=== PATIENT | female | born 1955 | race Caucasian/White ===

== ENCOUNTER 2020-04-02 11:22 | Outpatient (NON) | payer MEDICARE, SELFPAY ==
[2020-04-03 06:46] LABS: SARS-CoV-2 RNA PCR Positive
== END 2020-04-02 11:23 ==
PROVIDERS: PCP Family Medicine; Visit Provider Family Medicine
DX: U07.1 COVID-19 (principal)
CPT/HCPCS: 87635; C9803; U0003

== ENCOUNTER 2021-01-15 07:29 | Outpatient (CLI) | payer MEDICARE, SELFPAY ==
--- NOTE | ~2021-01-15 | MM_ITS ---
EXAMINATION: MM screening scarlet BI w kirill HISTORY: Screening mammogram TECHNIQUE: Craniocaudal and mediolateral oblique 3-D tomosynthesis images were obtained and synthetic 2-D images were generated. CAD analysis was submitted and interpreted. COMPARISON: 05/20/2019, 04/19/2018 bilateral digital screening mammogram examinations BREAST PARENCHYMAL COMPOSITION: There are scattered areas of fibroglandular density. FINDINGS: There is no evidence of suspicious mass, calcification, or architectural distortion to sugg est malignancy in either breast. There has been no suspicious interval change. IMPRESSION: 1. No mammographic evidence of malignancy. 2. Recommend routine screening mammography in one year. BI-RADS Category 1: Negative Reviewed, dictated and finalized at location A.
== END 2021-01-15 07:30 | disposition home or self-care (01) ==
LOC: ANHIMG 07:31
PROVIDERS: PCP Family Medicine; Visit Provider Physician Assistant
DX: Z12.31 Encounter for screening mammogram for malignant neoplasm of breast (principal)
CPT/HCPCS: 77063; 77067

== ENCOUNTER 2021-03-08 01:07 | Day surgery (SDC) | payer MEDICARE, SELFPAY ==
[2021-02-18 14:29] VITALS: BMI 23.1
[2021-03-08 07:30] VITALS: BP 113/77; PULSE 92; RESP 16; TEMP 35.6; O2SAT 99
--- NOTE | 2021-03-08 07:32 | WPDANESEPPF ---
Anes - Initial Pre Proc Eval Procedure: Operation Date: 03/08/21 08:30 Proposed Procedures p Screening Colonoscopy - Mando Parr MD Date/Time: 03/08/21 07:32 Surgeon: Mando Parr MD Pre Op Diagnosis: neoplasm screening Patient Data Age: 65 Gender: F Height: 1.63 m Weight: 61.3 kg Allergies Allergy/AdvReac Type Severity Reaction Status Date / Time No Known Allergies Verified 03/08/21 07:28 Home Medications Medication Instructions Recorded Confirmed Type calcium carbonate-vitamin D3 600 1 tablet PO DAILY 04/21/19 03/08/21 History mg (1,500 mg)-800 unit tablet multivitamin 1 tablet PO DAILY 04/21/19 03/08/21 History Patient hx anesthesia problems: none Family hx anesthesia problems: none Results Review: All pre-operative results and documents have been reviewed as part of the pre-operative evaluation. [facility] Surgical History Surgical History History of elective section Family History Family History Mother Family history of primary malignant neoplasm of liver Other Asthma Diabetes mellitus Family history of Hodgkin's lymphoma Family history of cardiovascular disease Family history of malignant neoplasm Social History Social History Smoking status: Never smoker Second hand tobacco smoke exposure: No Alcohol intake: never Substance use: never Substance use type: does not use Living arrangements: with family Gender identity (if verbalized by the patient): Female Anes - Eval Final PreProcedure Day of Procedure 03/08/21 07:32 Patient weight: normal Heart: regular rate and rhythm Lungs: clear to auscultation and normal air movement Airway: Mallampati scale class II Neurological: alert and oriented Last oral intake: >/= 8 hours ASA classification: I Emergent: no Anesthetic plan: proceed Anesthesia type and monitoring: general GIVS Results Review: All pre-operative results and documents have been reviewed as part of the pre-operative evaluation. Informed Consent: The patient's anesthetic plan and its attendant risks and benefits were discussed with the patient/family/POA. Questions were solicited and answers provided to the satisfaction of the patient/family/POA.
--- NOTE | 2021-03-08 07:33 | P.CONGI_ITS ---
Assessment and Plan Assessment and plan (1) Encounter for screening colonoscopy: Code(s): Z12.11 - Encounter for screening for malignant neoplasm of colon Status: Acute Assessment and Plan: Patient presents for screening colonoscopy. Appears to be at average risk for colon polyps. GI Consult Note Consult date/time: 03/08/21 07:33 HPI: Leeanne White is a 65 year old female Presents for screening colonoscopy. She reports her current weight appetite bowel movements are normal . She denies abdominal pain. She has had no bleeding. Family history noncontributory. Has been 10 years or more since her last colonoscopy. She presents today for surveillance screening colonoscopy. Review of Systems Review of Systems: All systems reviewed & are unremarkable except as noted in HPI and below PMFSH Surgical History Surgical History History of elective section Family History Family History Mother Family history of primary malignant neoplasm of liver Other Asthma Diabetes mellitus Family history of Hodgkin's lymphoma Family history of cardiovascular disease Family history of malignant neoplasm Social History Social History Smoking status: Never smoker Second hand tobacco smoke exposure: No Alcohol intake: never Substance use: never Substance use type: does not use Living arrangements: with family Gender identity (if verbalized by the patient): Female Meds Home Medications and Allergies Home Medications Medication Instructions Recorded Confirmed Type calcium carbonate-vitamin D3 600 1 tablet PO DAILY 04/21/19 03/08/21 History mg (1,500 mg)-800 unit tablet multivitamin 1 tablet PO DAILY 04/21/19 03/08/21 History Allergies Allergy/AdvReac Type Severity Reaction Status Date / Time No Known Allergies Verified 03/08/21 07:28 Exam Narrative: Physical exam reveals patient be alert. Vital signs stable. HEENT exam is unremarkable. Patient is anicteric. Lungs are clear to auscultat ion and percussion. Heart is without murmur or extra sounds. Abdominal exam bowel sounds are present soft nontender with no organomegaly. Digital external rectal exam is normal.
[2021-03-08] MEDS: LACTATED RINGERS 1,000 ML 150 ML IV CONT (07:38)
[2021-03-08 08:46] VITALS: BP 93/59; PULSE 76; RESP 13; O2SAT 97
[2021-03-08 08:56] VITALS: BP 116/70; PULSE 81; RESP 15; O2SAT 99
[2021-03-08 09:06] VITALS: BP 111/65; PULSE 79; RESP 22; O2SAT 100
== END 2021-03-08 09:18 | disposition home or self-care (01) ==
PROVIDERS: PCP Family Medicine; Visit Provider Internal Medicine Gastroenterology
PROC: 0DJD8ZZ Inspection of Lower Intestinal Tract, Via Natural or Artificial Opening Endoscopic (ICD-10-PCS; CPT 45378; principal; 2021-03-08 08:30)
DX: Z12.11 Encounter for screening for malignant neoplasm of colon (principal); D12.5 Benign neoplasm of sigmoid colon; K64.8 Other hemorrhoids
CPT/HCPCS: 45385; 88305; J2704; J7120

== ENCOUNTER 2022-06-13 08:00 | Outpatient (NON) | payer MEDICARE, SELFPAY | END 2022-06-13 08:01 | disposition home or self-care (01) | LOC: ANHLAB 06-14 12:25 | PROVIDERS: PCP Family Medicine; Visit Provider Nurse Practitioner | DX: C44.41 Basal cell carcinoma of skin of scalp and neck (principal) | CPT/HCPCS: 88305 ==

== ENCOUNTER 2022-06-20 09:05 | Outpatient (CLI) | payer MEDICARE, SELFPAY ==
--- NOTE | ~2022-06-20 | MM_ITS ---
EXAMINATION: MM screening scarlet BI w kirill HISTORY: Screening mammogram TECHNIQUE: Craniocaudal and mediolateral oblique 3-D tomosynthesis images were obtained and synthetic 2-D images were generated. CAD analysis was submitted and interpreted. COMPARISON: 01/2021, 05/20/2019, 04/19/2018 bilateral screening mammogram examinations BREAST PARENCHYMAL COMPOSITION: There are scattered areas of fibroglandular density. FINDINGS: There is no evidence of suspicious mass, calcification, or architectural distortion to sugg est malignancy in either breast. There has been no suspicious interval change. IMPRESSION: 1. No mammographic evidence of malignancy. 2. Recommend routine screening mammography in one year. BI-RADS Category 1: Negative Reviewed, dictated and finalized at location A. STRY FIRE AIDE
--- NOTE | ~2022-06-20 | DEXA_ITS ---
Bone Density Report Name: ARMANDO SIMMONS Age: 66 Sex: Female Ethnicity: White Date of : 1955 Indication: osteopenia; parental hip fracture; postmenopausal Referring Provider: BRANDON PADILLA Study: Bone densitometry was performed. Exam Date: June 20, 2022 Accession number: [id number] Bone Density: Region BMD T-score Z-score Classification AP Spine(L1-L4) 0.937 -1.0 1.0 Normal Femoral Neck (Left) 0.650 -1.8 -0.1 Osteopenia Total Hip (Left) 0.777 -1.4 0.1 Osteopenia Femoral Neck (Right) 0.643 -1.9 -0.1 Osteopenia Total Hip (Right) 0.747 -1.6 -0.2 Osteopenia Total Hip Mean 0.762 -1.5 -0.1 Osteopenia World Health Organization criteria for BMD impression classify patients as: Normal (T-score at or above -1.0), Osteopenia (T-score between -1.0 and -2.5), or Osteoporosis (T-score at or below -2.5). 10-year Fracture Risk(1): Major Osteoporotic Fracture 18% Hip Fracture 3.1% Reported Risk Factors: [place] (), Neck BMD=0.643, BMI=24.4, parental fracture (1) FRAX(R) Version 3.08. Fracture probability calculated for an untreated patient. Fracture probability may be lower if the patient has received treatment. Previous Exams: Region Exam Age BMD T-score BMD Change BMD Change Date g/cm2 vs Baseline vs Previous AP Spine (L1-L4) 06/20/2022 66 0.937 -1.0 0.012 (1.3%) 0.012 (1.3%) 05/20/2019 63 0.925 -1.1 Total Hip(Left) 06/20/2022 66 0.777 -1.4 -0.016 (-2.1%) -0.016 (-2.1%) 05/20/2019 63 0.794 -1.2 Total Hip(Right) 06/20/2022 66 0.747 -1.6 -0.018 (-2.3%) -0.018 (-2.3%) 05/20/2019 63 0.765 -1.5 *Denotes significance at 95% confidence level, LSC for AP Spine = 0.022 g/cm2, LSC for Total Hip = 0.027 g/cm2 Clinical Information Provided by Patient: Parent has had a hip fracture Has used the following medications: Calcium Patient maximum height was 64 Menopause Age: 53 Drinks caffeinated beverages Onset of menses at age 12 Number of children 3 Impression: The patient has low bone mass, based on the Right Femoral Neck T-score. The patient has an estimated ten-year risk of hip fracture of 3.1% and an estimated ten-year risk of major fracture of 18%, based on the WHO FRAX algorithm. The patient has risk factors, including: parental hip fracture. No significant bone loss was observed. Discussion: BONE DENSITY IS LOW AT ONE OR MORE SKELETAL SITES. THE PATIENT'S BMD AND CLINICAL RISK FACTORS CO
== END 2022-06-20 09:06 | disposition home or self-care (01) ==
PROVIDERS: PCP Family Medicine; Visit Provider Family Medicine
DX: Z12.31 Encounter for screening mammogram for malignant neoplasm of breast (principal); Z78.0 Asymptomatic menopausal state; M85.89 Other specified disorders of bone density and structure, multiple sites
CPT/HCPCS: 77063; 77067; 77080

== ENCOUNTER 2022-07-17 12:13 | Outpatient (NON) | payer MEDICARE, SELFPAY | END 2022-07-17 12:14 | disposition home or self-care (01) | LOC: ANHLAB 12:14 | PROVIDERS: PCP Family Medicine; Visit Provider Nurse Practitioner | DX: C44.91 Basal cell carcinoma of skin, unspecified (principal); C44.41 Basal cell carcinoma of skin of scalp and neck | CPT/HCPCS: 88305; 88331 ==

== ENCOUNTER 2024-08-06 14:31 | Outpatient (CLI) | payer MEDICARE, SELFPAY ==
--- NOTE | ~2024-08-06 | MM_ITS ---
EXAMINATION: MM screening [facility] BI w kirill HISTORY: Screening TECHNIQUE: Craniocaudal and mediolateral oblique 3-D tomosynthesis images were obtained and synthetic 2-D images were generated. CAD analysis was submitted and interpreted. COMPARISON: 06/20/2022 and dating back to 04/19/2018 BREAST PARENCHYMAL COMPOSITION: There are scattered areas of fibroglandular density. FINDINGS: Punctate calcifications are detected bilaterally, stable and benign in appearance. Indeterminate asymmetry within the upper outer quadrant of the right breast for which spot compressio n followed by a possible ultrasound is recommended. Otherwise stable parenchymal pattern without suspicious microcalcifications or architectural distorti on. IMPRESSION: Indeterminate asymmetry within the upper outer quadrant of the right breast for which spot compressio n followed by a possible ultrasound is recommended. BI-RADS Category 0: Incomplete: Needs additional imaging evaluation. Reviewed, dictated and finalized at location A. IMPRESSION: Indeterminate asymmetry within the upper outer quadrant of the right breast for which spot compression followed by a possible ultrasound is recommended. BI-RADS Category 0: Incomplete: Needs additional imaging evaluation.
== END 2024-08-06 14:32 | disposition home or self-care (01) ==
LOC: ANHIMG 14:33
PROVIDERS: PCP Family Medicine; Visit Provider Family Medicine
DX: Z12.31 Encounter for screening mammogram for malignant neoplasm of breast (principal); R92.8 Other abnormal and inconclusive findings on diagnostic imaging of breast
CPT/HCPCS: 77063; 77067

== ENCOUNTER 2024-08-20 08:25 | Outpatient (CLI) | payer MEDICARE, SELFPAY ==
--- NOTE | ~2024-08-20 | DEXA_ITS ---
Bone Density Report Name: ARMANDO SIMMONS Age: 68 Sex: Female Ethnicity: White Date of : 1955 Indication: osteopenia; parental hip fracture; height loss; Referring Provider: BRANDON PADILLA Study: Bone densitometry was performed. Exam Date: August 20, 2024 Accession number: [id number] Bone Density: Region BMD T-score Z-score Classification AP Spine(L1-L4) 0.938 -1.0 1.2 Normal Femoral Neck (Left) 0.651 -1.8 0.1 Osteopenia Total Hip (Left) 0.768 -1.4 0.1 Osteopenia Femoral Neck (Right) 0.622 -2.0 -0.2 Osteopenia Total Hip (Right) 0.779 -1.3 0.2 Osteopenia Total Hip Mean 0.773 -1.4 0.2 Osteopenia World Health Organization criteria for BMD impression classify patients as: Normal (T-score at or above -1.0), Osteopenia (T-score between -1.0 and -2.5), or Osteoporosis (T-score at or below -2.5). 10-year Fracture Risk(1): Major Osteoporotic Fracture 20% Hip Fracture 6.1% Reported Risk Factors: [place] (), Neck BMD=0.622, BMI=24.9, parental fracture (1) FRAX(R) Version 3.08. Fracture probability calculated for an untreated patient. Fracture probability may be lower if the patient has received treatment. Previous Exams: Region Exam Age BMD T-score BMD Change BMD Change Date g/cm2 vs Baseline vs Previous AP Spine (L1-L4) 08/20/2024 68 0.938 -1.0 0.013 (1.4%) 0.002 (0.2%) 06/20/2022 66 0.937 -1.0 0.012 (1.3%) 0.012 (1.3%) 05/20/2019 63 0.925 -1.1 Total Hip(Left) 08/20/2024 68 0.768 -1.4 -0.026 (-3.2%) -0.009 (-1.2%) 06/20/2022 66 0.777 -1.4 -0.016 (-2.1%) -0.016 (-2.1%) 05/20/2019 63 0.794 -1.2 Total Hip(Right) 08/20/2024 68 0.779 -1.3 0.014 (1.8%) 0.031 (4.2%)* 06/20/2022 66 0.747 -1.6 -0.018 (-2.3%) -0.018 (-2.3%) 05/20/2019 63 0.765 -1.5 *Denotes significance at 95% confidence level, LSC for AP Spine = 0.022 g/cm2, LSC for Total Hip = 0.027 g/cm2 Clinical Information Provided by Patient: Parent has had a hip fracture Has used the following medications: Vitamin D, Calcium Patient maximum height was 65 Menopause Age: 53 No regular weight bearing exercise Drinks caffeinated beverages Onset of menses at age 11 Number of children 3 Impression: The patient has low bone mass, based on the Right Femoral Neck T-score. The patient has an estimated ten-year risk of hip fracture of 6.1% and an estimated ten-year risk of major fracture of 20%, based on the WHO FRAX algorithm. The patient has risk factors, including: parental hip fracture. No significant bone loss was observed. Discussion: BONE DENSITY IS LOW AT ONE OR MORE SKELETAL SITES. THE PATIENT'S BMD AND CLINICAL RISK FACTORS CONTRIBUTE TO THIS PATIENT'S HIGH RISK OF FRACTURE. This patient's lowest T-score is low at one or more skeletal sites. It meets the World Health Organization's (WHO) criteria for ?low bone mass? (T-score between -1.0 and -2.5). The patient's 10-year risk of hip fracture and 10 year risk of a major osteoporotic fracture as calculated by FRAX exceeds the threshold where pharmacological therapy is recommended by the National Osteoporosis Foundation (NOF). However, all treatment decisions require clinical judgment and consideration of individual patient factors, including patient preferences, comorbidities, previous drug use, risk factors not captured in the FRAX model (e.g., frailty, falls, vitamin D deficiency, increased bone turnover, interval significant decline in bone density) and possible under or overestimation of fracture risk by FRAX. The patient should follow a healthful lifestyle (good nutrition with adequate calcium and vitamin D, and appropriate weight-bearing exercise). Follow-Up: Consider a repeat BMD and Vertebral Fracture Assessment (VFA) exam in 2 years or sooner if medically necessary, to reassess this patient's status. Reported by: HOLA on 08/20/2024 9:10:00 AM. Reviewed, dictated and finalized at location AChris DAVIS
--- NOTE | ~2024-08-20 | MMUS_ITS ---
EXAMINATION: MM diagnostic scarlet RT w kirill, US breast RT limited HISTORY: Follow-up right breast asymmetry TECHNIQUE: Additional 3-D tomosynthesis images of the right breast were performed and synthetic 2-D i mages were generated. CAD analysis was submitted and interpreted. High resolution Limited right breas t ultrasound was performed. COMPARISON: Comparison to multiple prior studies sequentially, with oldest reviewed study dated 11/2019. BREAST PARENCHYMAL COMPOSITION: Not dense: There are scattered areas of fibroglandular density. FINDINGS: MAMMOGRAPHIC FINDINGS: There is a new focal area of asymmetry/architectural distortion in the upper outer quadrant of the ri ght breast, middle third. ULTRASOUND: Limited right breast ultrasound: At 11:00, 3 cm from the nipple there is an irregular shaped antipara llel hypoechoic 5 mm mass without internal vascularity or significant posterior features. This corres ponds to the area of mammographic concern. IMPRESSION: 1. Irregular shaped antiparallel 5 mm right breast mass at 11:00, 3 cm from the nipple corresponding to the area of mammographic abnormality. 2. Ultrasound-guided right breast biopsy recommended. BI-RADS category 4, suspicious findings. Reviewed, dictated and finalized at location A. IMPRESSION: 1. Irregular shaped antiparallel 5 mm right breast mass at 11:00, 3 cm from the nipple corresponding to the area of mammographic abnormality. 2. Ultrasound-guided right breast biopsy recommended. BI-RADS category 4, suspicious findings.
== END 2024-08-20 08:26 | disposition home or self-care (01) ==
LOC: ANHIMG 08:27
PROVIDERS: PCP Family Medicine; Visit Provider Family Medicine
DX: R92.8 Other abnormal and inconclusive findings on diagnostic imaging of breast (principal); N63.15 Unspecified lump in the right breast, overlapping quadrants; M85.89 Other specified disorders of bone density and structure, multiple sites; Z78.0 Asymptomatic menopausal state
CPT/HCPCS: 76642; 77061; 77065; 77080; G0279

== ENCOUNTER 2024-09-04 08:05 | Outpatient (CLI) | payer MEDICARE, SELFPAY ==
--- NOTE | ~2024-09-04 | MMUS_ITS ---
MM post biopsy diagnostic RT, US breast biopsy RT w image EXAMINATION: US GUIDED NEEDLE BIOPSY WITH VACUUM ASSISTANCE DATE: 09/04/2024 9:26 CDT INDICATION: Right breast mass seen on prior examination. Ultrasound-guided core biopsy is requested to evaluate for malignancy. BREAST PARENCHYMAL COMPOSITION: Not dense: There are scattered areas of fibroglandular density. TECHNIQUE AND FINDINGS: Procedure performed by Dr. Aaron. The risks and potential benefits of the procedure were discussed with the patient, and written informed consent was obtained. After sterile preparation of the right breast, 1% lidocaine was utilized for local anesthesia. 1% lidocaine with epinephrine was used for d eep anesthesia. A 10G vacuum-assisted biopsy gun needle was advanced through to the outer edge of the region of inter est from a superior approach utilizing sonographic guidance. An Inrad tissue marker clip was then kelsey heather at the biopsy site. Hemostasis was achieved. The patient tolerated procedure well and there was no evidence of immediate complication. The patien t was given verbal instructions partly is from the department. Right breast mammograms to document t issue marker clip placement. The tissue samples were submitted to surgical pathology for histologic a nalysis. IMPRESSION: 1. Status post ultrasound-guided vacuum-assisted biopsy of right breast mass with post procedure mamm ogram for marker placement. Please refer to pathology report for histologic analysis. Please refer to Dr. Aaron's procedural report for details. Reviewed, dictated and finalized at location A. IMPRESSION: 1. Status post ultrasound-guided vacuum-assisted biopsy of right breast mass wi th post procedure mammogram for marker placement. Please refer to pathology rep ort for histologic analysis. Please refer to Dr. Aaron's procedural report fo r details.
--- NOTE | 2024-09-04 07:48 | P.PCNBRBIO_ITS ---
Biopsy Procedure Date of Procedure 09/04/24 Indication Irregular shaped right breast mass at 11 o'clock position 3cm from the nipple Impression Same as above Procedure Performed Procedure Performed: US Breast Biopsy with Imaging Surgeon Janie Aaron MD Anesthesia Anesthesia: Local Description of Procedure Description of Procedure: Risk of the procedure were discussed with the patient which included but not limited to risk of bleeding, infection, possible need for repeat biopsy or additional procedures in the future, bruising, hematoma,etc. Benefits and alternatives to procedure were discussed as well. Consent was obtained and a time out was performed. The right breast mass was identified using the US at 11 o'clock position 3 cm from the nipple, and lidocaine with epinephrine was used to anesthetize the skin and tissue alcala rrounding the mass under US guidance. A 10g vacuum assisted device was used to obtain 4 core biopsy specimens under US guidance. An Inrad tissue marker clip was then placed at the biopsy site under US guidance. Pressure was held over the area for 10 minutes with excellent hemostasis. Core needle specimens were sent to pathology in formalin. Patient tolerated the procedure well with no immediate complications. A post-procedure right mammogram was obtained to confirm the tissue marker clip placement.
== END 2024-09-04 08:06 | disposition home or self-care (01) ==
PROVIDERS: PCP Family Medicine; Visit Provider Surgery
DX: C44.41 Basal cell carcinoma of skin of scalp and neck (principal); N60.01 Solitary cyst of right breast; R92.8 Other abnormal and inconclusive findings on diagnostic imaging of breast
CPT/HCPCS: 19083; 77065; 88305; 88342; 88360; A4648

== ENCOUNTER 2024-10-03 09:01 | Outpatient (CLI) | payer MEDICARE, SELFPAY ==
--- NOTE | ~2024-10-03 | MMUS_ITS ---
EXAMINATION: MM post biopsy diagnostic RT, US_MAGSEEDRT_US INDICATION: Right breast abnormality. Surgical biopsy recommended. TECHNIQUE: The procedure for a ultrasound -guided Magseed localization was discussed with the patient . Risks discussed included bleeding and infection. The patient verbalized understanding and agreed to proceed. Follow-up The time out was performed to verify the patient's name, date of , and site of procedure. The s kin overlying the breast was prepared in usual fashion. Utilizing ultrasound guidance, the needle w as advanced into the right breast. Confirmation of Magseed position was achieved with ultrasound and subsequent mediolateral and craniocaudal mammogram. The patient tolerated procedure without immediate complication. BREAST PARENCHYMAL COMPOSITION: Not dense: There are scattered areas of fibroglandular density. FINDINGS: Ultrasound and mammographic images demonstrate deployment of the Magseed device adjacent to the right breast mass in the upper central right breast, posterior third. There is an adjacent tissu e marker from previous biopsy. IMPRESSION: 1. Successful ultrasound-guided right breast Magseed localization. Post procedure mammogram for marke r placement. Reviewed, dictated and finalized at location B. IMPRESSION: 1. Successful ultrasound-guided right breast Magseed localization. Post procedu re mammogram for marker placement.
== END 2024-10-03 09:02 | disposition home or self-care (01) ==
LOC: ANHIMG 09:02
PROVIDERS: PCP Family Medicine; Visit Provider Surgery
DX: N63.11 Unspecified lump in the right breast, upper outer quadrant (principal); R92.8 Other abnormal and inconclusive findings on diagnostic imaging of breast
CPT/HCPCS: 19285; 77065; A4648

== ENCOUNTER 2024-10-14 00:20 | Day surgery (SDC) | payer MEDICARE, SELFPAY ==
--- NOTE | 2024-09-26 13:15 | PC.NURSE ---
Report to the Outpatient Waiting Room, entrance under the green pavilion located off [facility], at time __7 AM on date ___10/14/24____. Planned Procedure Time: __9 AM .? Time changes happen often and if your time is changed the preop area will call you the afternoon before. - You and your visitor will be asked to self-screen and do not enter if you have any COVID symptoms. Please call surgeon if you need to reschedule. - A mask is optional within the hospital at this time. Patients may have clear liquids (water, carbonated beverages, clear teas, apple juice) until 3 hours prior to surgery ( 6AM ) with a maximum of 20 ounces. - No food from midnight until time of surgery and no smoking, or chewing tobacco (or any form of nicotine). No chewing gum, candy or mints. Take only the following medications with a SIP of water on the morning of surgery: NONE DO NOT STOP ANY OF YOUR OTHER PRESCRIPTION MEDICATIONS PRIOR TO SURGERY EXCEPT THE FOLLOWING Hold all vitamins and supplements for 3 days per anesthesiologist.LAST DOSE 10/10/24 Medications to discontinue per physician NONE Please no make-up, nail bots[place], hairspray, perfume, deodorant, or body powder the day of surgery.? No jewelry (including any body piercings) or valuables the day of surgery, leave them at home.? Please take a shower or bath the night before, or the morning of, surgery with an antibacterial soap.? Wear comfortable, loose fitting clothing.? Children are encouraged to wear pajamas. - Jewelry must be removed prior to entering the operating room.? Rings and piercings that are not removed may be cut off. - The hospital will not accept responsibility for valuables.? - Please leave all valuables, including medications, at home the day of surgery. If you are going home after surgery, a licensed motor vehicle escort driver must drive you home.? - NO public transportation without another adult if you receive anesthesia. - We recommend that an adult stay with you for 24 hours following discharge. - We also recommend that you do not drive, make important decision, drink alcoholic beverages, or take any drugs that were not prescribed by your health care provider for at least 24 hours after your discharge time. For Pediatric surgeries, we recommend two adults accompany the child home. Follow any additional instructions given to you from your surgeon. Telephone instructions given to __PATIENT and asked if any additional questions and then verbalized understanding. Patient advised to call surgeon office or pre surgery nurse liaison [phone] if any additional questions.
[2024-09-26 13:23] VITALS: BMI 24.4
[2024-10-14] MEDS: LACTATED RINGERS 1,000 ML 30 ML IV CONT (06:15)
--- NOTE | 2024-10-14 06:55 | P.PNAN_ITS ---
Anes - Initial Pre Proc Eval Procedure: Operation Date: 10/14/24 07:30 Proposed Procedures p Right Breast Lumpectomy with Mag Seed Localization, Possible Adjacent Tissue Transfer - Janie Aaron MD Date/Time: 10/14/24 06:55 Surgeon: Janie Aaron MD Pre Op Diagnosis: Unspecified Lump Right Breast Patient Data Age: 69 Gender: F Height: 1.61 m Weight: 63.6 kg Allergies Allergy/AdvReac Type Severity Reaction Status Date / Time No Known Allergies Allergy Verified 09/26/24 13:14 Home Medications ?Medication ?Instructions ?Recorded ?Confirmed ?Type calcium 600 mg (as 1 tablet PO DAILY 04/21/19 09/26/24 History carbonate)-vitamin D3 20 mcg (800 unit) tablet (Caltrate with Vitamin D3) multivitamin 1 tablet PO DAILY 04/21/19 09/26/24 History ascorbic acid (vitamin C) 1,000 mg 1 g PO DAILY 09/26/24 09/26/24 History tablet (C-1000) saw palmetto 450 mg capsule 450 mg PO DAILY 09/26/24 09/26/24 History vit A 300 mcg-C 200 mg-E 27 1 tablet PO DAILY 09/26/24 09/26/24 History mg-lutein 2 mg and minerals tablet ([facility] Plus Lutein) Patient hx anesthesia problems: none Family hx anesthesia problems: none Results Review: All pre-operative results and documents have been reviewed as part of the pre- operative evaluation. FORMERLY [facility], [facility] Surgical History Surgical History History of elective section Family History Family History Mother Family history of primary malignant neoplasm of liver Other Asthma Diabetes mellitus Family history of Hodgkin's lymphoma Family history of cardiovascular disease Family history of malignant neoplasm Social History Social History Smoking status: Never smoker Second hand tobacco smoke exposure: No Alcohol intake: never Substance use: never Substance use type: does not use Do You Feel Safe in your Home?: Yes Lack of Transportation: No Lack of Food: Never True Current Housing: Decline to Answer Concerned About Future Housing: Decline to Answer Difficulty Paying Gas/Electric Bills: Decline to Answer Difficulty Paying for Meds: Decline to Answer Currently Unemployed: Decline to Answer Education: Decline to Answer Difficulty w/ Childcare or Family Care: Decline to Answer Living arrangements: with family Occupation/Education: retired Gender identity (if verbalized by the patient): Female Spiritual care concerns: No Anes - Eval Final PreProcedure Day of Procedure 10/14/24 06:55 Patient weight: normal Heart: regular rate and rhythm Lungs: clear to auscultation Airway: Mallampati scale class II and special considerations retrognathia Neurological: alert and oriented Last oral intake: >/= 8 hours ASA classification: II Emergent: no Anesthetic plan: proceed Anesthesia type and monitoring: general LMA and standard monitoring Results Review: All pre-operative results and documents have been reviewed as part of the pre- operative evaluation. Informed Consent: The patient's anesthetic plan and its attendant risks and benefits were discussed with the patient/family/POA. Questions were solicited and answers provided to the satisfaction of the patient/family/POA.
[2024-10-14 07:00] VITALS: BP 143/68; PULSE 80; RESP 16; TEMP 36.3; O2SAT 100
--- NOTE | 2024-10-14 07:01 | WPDHPUPDATE1 ---
History and Physical Update Update Date/Time: 10/14/24 07:01 - Right breast lumpectomy with magseed localization History and Physical has been reviewed, including an updated exam of the patient. There are NO changes in the patient's condition. Risks, benefits, and alternatives have been discussed and questions answered. Patient agrees to proceed with procedure.
--- NOTE | 2024-10-14 07:03 | PM.IMHP ---
H&P: HPI History of Present Illness Date/Time: 10/14/24 07:03 Chief Complaint: Right breast mass, at 11 o'clock position 3 cm from the nipple Review of Systems Review of Systems: All systems reviewed & are unremarkable except as noted in HPI and below Constitutional: Constitutional: Reports as per HPI [facility] Surgical History Surgical History History of elective section Family History Family History Mother Family history of primary malignant neoplasm of liver Other Asthma Diabetes mellitus Family history of Hodgkin's lymphoma Family history of cardiovascular disease Family history of malignant neoplasm Social History Social History Smoking status: Never smoker Second hand tobacco smoke exposure: No Alcohol intake: never Substance use: never Substance use type: does not use Do You Feel Safe in your Home?: Yes Lack of Transportation: No Lack of Food: Never True Current Housing: Decline to Answer Concerned About Future Housing: Decline to Answer Difficulty Paying Gas/Electric Bills: Decline to Answer Difficulty Paying for Meds: Decline to Answer Currently Unemployed: Decline to Answer Education: Decline to Answer Difficulty w/ Childcare or Family Care: Decline to Answer Living arrangements: with family Occupation/Education: retired Gender identity (if verbalized by the patient): Female Spiritual care concerns: No Meds Home Medications and Allergies Home Medications ?Medication ?Instructions ?Recorded ?Confirmed ?Type calcium 600 mg (as 1 tablet PO DAILY 04/21/19 09/26/24 History carbonate)-vitamin D3 20 mcg (800 unit) tablet (Caltrate with Vitamin D3) multivitamin 1 tablet PO DAILY 04/21/19 09/26/24 History ascorbic acid (vitamin C) 1,000 mg 1 g PO DAILY 09/26/24 09/26/24 History tablet (C-1000) saw palmetto 450 mg capsule 450 mg PO DAILY 09/26/24 09/26/24 History vit A 300 mcg-C 200 mg-E 27 1 tablet PO DAILY 09/26/24 09/26/24 History mg-lutein 2 mg and minerals tablet (Eye Health Plus Lutein) Allergies Allergy/AdvReac Type Severity Reaction Status Date / Time No Known Allergies Allergy Verified 09/26/24 13:14 Exam Const: General: comfortable, no acute distress and in distress Eyes: General: appearance normal, both eyes and all related structures Resp: Effort & Inspection: normal respiratory effort Cardio: Rate: regular rate GI: GI Palp: Yes Soft to palpation Skin: General skin exam: normal color Neuro: Speech: normal speech Extrem: General: normal to inspection Psych: Mental Status: mental status grossly normal Assessment and Plan Assessment and plan (1) Breast lump on right side at 11 o'clock position: Code(s): N63.11 - Unspecified lump in the right breast, upper outer quadrant Status: Acute Plan 68-year-old female status post core needle biopsy of right breast mass at 11 o'clock position 3 cm from the nipple who presents today for path report review and follow-up. I discussed with the patient at the path report showed a benign cyst, and which is discordant to image findings. I discussed with the patient that the images show a suspicious mass not a cyst, and that is why the path report is discordant and could represent a sampling error. I discussed with the patient options for further management including a surgical biopsy versus a repeat ultrasound in 3 months and after discussing both options, patient has elected to proceed with an excisional biopsy of this right breast mass for tissue diagnosis and may be even definitive management. The risks of the procedure were discussed with the patient which included but not limited to risk of bleeding, infection, recurrence, positive margins, possible need for additional procedures in the future, wound healing problems, scar, pain, as well as the risk of anesthesia. All questions were answered patient agreed to proceed. We will plan for right breast lumpectomy with magseed localization and possible adjacent tissue transfer.
[2024-10-14] MEDS: ACETAMINOPHEN 500 MG TABLET 1000 MG PO (07:19)
[2024-10-14 07:56] VITALS: BP 145/60; PULSE 87; RESP 18; TEMP 36.2; O2SAT 100
--- NOTE | 2024-10-14 07:57 | ECG_ITS ---
Test Date: 2024-10-14 08:09:24 Measurements Intervals [place] Rate: 87 P: 46 CO: 131 QRS: -13 QRSD: 88 T: 36 QT: 353 QTc: 425 Interpretive Statements SINUS RHYTHM WITH VENTRICULAR TRIGEMINY LOW QRS VOLTAGE IN PRECORDIAL LEADS ABNORMAL ECG No previous ECG available for comparison Electronically Signed On 10-14-2024 08:38:51 CDT by Jin Willingham D.O.
[2024-10-14 08:10] VITALS: BP 141/89; PULSE 96; RESP 20; O2SAT 97
--- NOTE | 2024-10-14 08:12 | SUR.PHASEI ---
0756 - pt to PACU. Dr. Aaron talking to pt's family via phone in regards to pt's EKG changes at start of procedure. [id number] - dr. son reviewed EKG results. pt to proceed with cardiology consult as ordered by dr. Aaron after discharge
[2024-10-14 08:18] VITALS: BP 150/67; PULSE 88; RESP 18
[2024-10-14 08:45] VITALS: BP 145/64; PULSE 72; RESP 18
== END 2024-10-14 09:00 | disposition home or self-care (01) ==
PROVIDERS: PCP Family Medicine; Visit Provider Surgery
PROC: (CPT 19120; principal; 2024-10-14 07:30)
DX: N63.11 Unspecified lump in the right breast, upper outer quadrant (principal); R94.31 Abnormal electrocardiogram [ECG] [EKG]; Z53.09 Procedure and treatment not carried out because of other contraindication
CPT/HCPCS: 19120; 76098; 93005; A9270; J2250; J3010; J7120; Q9968

== ENCOUNTER 2025-01-27 00:14 | Day surgery (SDC) | payer MEDICARE, SELFPAY ==
--- NOTE | 2025-01-16 14:29 | PC.NURSE ---
Report to the Outpatient Waiting Room, entrance under the green pavilion located off [facility], at time _10 AM on date _01/27/25 . Planned Procedure Time: __1200 NOON .? Time changes happen often and if your time is changed the preop area will call you the afternoon before. - You and your visitor will be asked to self-screen and do not enter if you have any COVID symptoms. Please call surgeon if you need to reschedule. - A mask is optional within the hospital at this time. Patients may have clear liquids (water, carbonated beverages, clear teas, apple juice) until 3 hours prior to surgery ( 9 AM) with a maximum of 20 ounces. - No food from midnight until time of surgery and no smoking, or chewing tobacco (or any form of nicotine). No chewing gum, candy or mints. - Take only the following medications with a SIP of water on the morning of surgery: ____NONE DO NOT STOP ANY OF YOUR OTHER PRESCRIPTION MEDICATIONS PRIOR TO SURGERY EXCEPT THE FOLLOWING Hold all vitamins and supplements for 3 days per anesthesiologist.LAST DOSE 01/23/25 Medications to discontinue per physician NONE Date to take last dose Please no make-up, nail welsh, hairspray, perfume, deodorant, or body powder the day of surgery.? No jewelry (including any body piercings) or valuables the day of surgery, leave them at home.? Please take a shower or bath the night before, or the morning of, surgery with an antibacterial soap.? Wear comfortable, loose fitting clothing.? Children are encouraged to wear pajamas. - Jewelry must be removed prior to entering the operating room.? Rings and piercings that are not removed may be cut off. - The hospital will not accept responsibility for valuables.? - Please leave all valuables, including medications, at home the day of surgery. If you are going home after surgery, a licensed semi truck driver must drive you home.? - NO public transportation without another adult if you receive anesthesia. - We recommend that an adult stay with you for 24 hours following discharge. - We also recommend that you do not drive, make important decision, drink alcoholic beverages, or take any drugs that were not prescribed by your health care provider for at least 24 hours after your discharge time. For Pediatric surgeries, we recommend two adults accompany the child home. Follow any additional instructions given to you from your surgeon. Telephone instructions given to __PATIENT and asked if any additional questions and then verbalized understanding. Patient advised to call surgeon office or pre surgery nurse liaison [phone] if any additional questions.
[2025-01-16 14:35] VITALS: BMI 24.4
--- NOTE | 2025-01-16 14:41 | PC.NURSE ---
PT STATES SURGERY ON 10/14/24 WAS ABORTED R/T HEART RACING SAW DR LEE HE DID ECHO. NO CHANGE IN HEALTH HX
[2025-01-27] VITALS (7 sets, daily range): BP systolic 142–167; BP diastolic 73–106; PULSE 81–106; RESP 12–16; TEMP 36.2–36.6; O2SAT 95–100; BMI 25.0
--- NOTE | ~2025-01-27 | MM_ITS ---
Clinical history:Breast specimen EXAM:Faxitron breast specimen TECHNIQUE:2 images were obtained FINDINGS: A breast specimen is identified. 2 clips are noted within the specimen. IMPRESSION: A breast specimen is identified. 2 clips are noted within the specimen. Correlate clinically. Reviewed, dictated and finalized at location Q. IMPRESSION: A breast specimen is identified. 2 clips are noted within the specimen. Correla te clinically.
--- OUTSIDE RECORDS SUMMARY | 2025-01-27 00:17 | XMS_ITS | Encounter Summary ---
Author Organization [facility] Healthcare Address [address] [place] [id number] Care Team Providers Care Independent Sales Representative Name Role Phone Janie Aaron MD Primary Care Provider Encounter Details Date Type Department Care Team (Late st Contact Info) Description 01/20/2025 Telephone [facility] Medical [facility] Cardiology [address] [facility] [address] [facility] [address] [place] [address] Wes Stover MD [address] [facility] [address] [place] [address] Social History Tobacco Use Types Packs/Day Years Used Date Smoking Tobacco: Never Comments Unknown Sex and Gender Information Value Date Recorded Sex Assigned at Not on file Legal Sex Female 2:28 AM [employer] Gender Identity Not on file Sexual Orientation Not on file documented as of this encounter Miscellaneous Notes * Telephone Encounter - Karen Jeffries RN - 01/20/2025 1:50 PM CDT Spoke with pt, reviewed message from [facility] and she verbalized understanding. * Telephone Encounter - Karen Jeffries RN - 01/20/2025 11:10 AM CDT Will forward to [facility]. Please advise, thank you! Per last OV note: Obtain an echocardiogram with Doppler to ensure there is no structural cardiac abnormality. If the echocardiogram is favorable she can be considered cleared for surgery she is not having any symptoms that would suggest an ischemia workup is necessary * Telephone Encounter - Lauren Cordova - 01/20/2025 11:08 AM CDT Pt requesting call to discuss echo results. Contact: documented in this encounter Plan of Treatment Not on file documented as of this encounter Visit Diagnoses Not on filedocumented in this encounter Care Teams Independent Sales Representative Relationship Specialty Start Date End Date Janie Aaron MD [address] [address] PCP - General General Surgery 10/14/24 documented as of this encounter
--- OUTSIDE RECORDS SUMMARY | 2025-01-27 00:17 | XMS_ITS | Clinical Summary ---
Author Organization [facility] [address] Address [address] [place] [phone] Care Team Providers Care Hammer Smith Name Role Phone Janie Aaron MD Primary Care Provider [phone] Allergies No known active allergies Medications calcium carbonate-vit D3-min 600 mg calcium- 200 unit tablet Take by mouth Active [id number]- Lmfolate-algal 27 mg iron-1.13 mg-581.92 mg capsule Take by mouth Active saw palmetto 450 mg capsule Take by mouth Active Active Problems Problem Noted Date Diagnosed Date Preoperative clearance 01/01/2025 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/01/2025 Encounters Date Type Department Care Team Description 01/20/2025 Telephone [facility] Cardiology [address] [place] [address] [address] [place] [phone] Wes Stover MD 01/15/2025 Telephone [facility] Cardiology [address] [place] [address] [address] [place] [phone] Wes Stover MD cardiac clearance 01/13/2025 10:15 AM CDT Ancillary Procedure [facility] Cardiology at [address] [place] [phone] Preoperative clearance; 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/01/2025 2:00 PM CDT Office Visit [facility] Cardiology at [address] [place] [phone] Wes Stover MD Preoperative clearance (Primary Dx); Ventricular trigeminy; Need for lipid screening from Last 3 Months Surgical History Surgery Date Site/Laterality Comments SECTION x2 Medical History Medical History Date Comments Cardiac arrhythmia Breast mass Family History Medical History Relation Name Comments Heart disease Father Heart disease Mother malignant neoplasm of liver Mother Relation Name Status Comments Father Mother Social History Tobacco Use Types Packs/Day Years Used Date Smoking Tobacco: Never Tobacco Cessation:Counseling Given: Not Answered Comments Unknown Sex and Gender Information Value Date Recorded Sex Assigned at Not on file Legal 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 Gender Identity Not on file Sexual Orientation Not on file Obstetrics History Last Filed Vital Signs Vital Sign Reading Time Taken Comments Blood Pressure 130/80 01/01/2025 1:58 PM CDT Pulse 88 01/01/2025 1:58 PM CDT Temperature - - Respiratory Rate - - Oxygen Saturation 98% 01/01/2025 1:58 PM CDT Inhaled Oxygen Concentration - - Weight 65.7 kg (144 lb 12.8 oz) 01/01/2025 1:58 PM CDT Height 162.6 cm (5' 4) 01/01/2025 1:58 PM CDT Body Mass Index 24.85 01/01/2025 1:58 PM CDT Plan of Treatment Health Maintenance Due Date Last Done Comments Breast Cancer Screening-Mammogram 1955 Colon Cancer Screening-Colonoscopy 1955 Depression Screening 1955 Fall Risk Assessment 1955 Hepatitis C Screening 1955 Osteoporosis Screening-Bone Density Scan 1955 DTaP/Tdap/Td Vaccine (1 - Tdap) 1964 Hepatitis B Screening 10/04/1971 Pneumococcal vaccine 65+ (1 of 1 - PCV) 10/04/2003 Zoster Vaccine (1 of 2) 10/04/2003 Well Visit 65+ 2018 Influenza Vaccine (#1) 2025 Procedures Procedure Name Priority Date/Time Associated Diagnosis Comments TRANSTHORACIC ECHO (TTE) COMPLETE W DOPPLER/CF WO CONTRAST Routine 01/13/2025 11:33 AM CDT Preoperative clearance Ventricular trigeminy POCT LIPID PANEL Routine 01/01/2025 3:36 PM CDT Need for lipid screening from Last 3 Months Results * TRANSTHORACIC ECHO (TTE) COMPLETE W DOPPLER/CF WO CONTRAST (01/13/2025 11:33 AM CDT) Estimated EF 60 % CONS SCIMAGE EF Mod BP 58 % CONS SCIMAGE Anatomical Region Laterality Modality Ultrasound 01/13/2025 10:1 4 AM CDT Narrative 01/13/2025 1:04 PM CDT [facility] Cardiology [address], [address], [place] [address] P:[phone] P:[phone] Echocardiographic Report Patient Name: SERGIO WHITE : 1955 Study Date: 01/13/2025 10:14:25 AM Sex: F Director Of Corporate Communications: CARLOS Location: [facility] Ref Provider: WES STOVER Height(Cm): 163 BSA: 1.72 Weight(Kg): 65.3 Heart Rate: 83 BP: 130 / 80 Quality: Good Order Provider: WES STOVER PROCEDURES: Echocardiographic Report: Transthoracic echocardiogram with complete 2D, M-Mode, and color Doppler examination. With Strain Analysis. INDICATIONS: Ventricular Trigeminy and Z01.818 Encounter for other preprocedural examination. MEASUREMENTS: 2D/MM Value Range Doppler Value Range EF Mod BP 58 % [ 54 - 74 ] HARINI Vmax 1.96 cm2 [ 2.00 - 4.00 ] EF Teich MM 56 % [ 54 - 74 ] AV Mean PG 5 mmHg Estimated EF 60 % AV Peak Marcello 1.48 m/s [ 1.00 - 1.70 ] LV GLS -11.61 % AV Peak PG 9 mmHg LVIDd 2D 3.91 cm [ 3.80 - 5.20 ] AV VTI 30.08 cm LVIDd MM 4.38 cm [ 3.80 - 5.20 ] LVOT Diam 2.04 cm [ 1.70 - 2.10 ] LVIDs 2D 3.02 cm [ 2.20 - 3.50 ] LVOT Peak Marcello 0.89 m/s [ 0.70 - 1.10 ] LVIDs MM 3.11 cm [ 2.20 - 3.50 ] LVOT VTI 19.49 cm LVPWd 2D 1.18 cm [ 0.60 - 0.90 ] MV E Peak Marcello 0.59 m/s [ 0.60 - 1.30 ] LVPWd MM 0.97 cm [ 0.60 - 0.90 ] MV A Peak Marcello 0.98 m/s [ 1.00 - 1.20 ] IVSd 2D 0.74 cm [ 0.60 - 0.90 ] MV Decel Time 193 msec [ 104 - 258 ] IVSd MM 1.00 cm [ 0.60 - 0.90 ] PV Peak Marcello 0.92 m/s [ 0.40 - 0.80 ] LA Dimension MM 2.24 cm [ 2.70 - 3.80 ] TR Peak Marcello 2.47 m/s [ 1.00 - 2.80 ] AoR Diam MM 3.08 cm [ 2.70 - 3.70 ] TR Peak PG 24 mmHg LA Volume 18.76 ml [ 22.00 - 52.00 ] RVSP 32.00 mmHg [ 10.00 - 36.00 ] LA Volume Index 11 cc/m2 [ 16 - 28 ] RV S` 0.14 m/s ACS MM 1.60 cm Lateral E` 0.04 m/s [ 0.10 - 0.15 ] RA Volume 20.96 ml Septal E` 0.03 m/s [ 0.08 - 0.15 ] E` 0.04 m/s E/E` 16 Tapse 1.85 cm [ 1.71 - 5.00 ] 2D/MM Value Range Doppler Value Range - FINDINGS: Interpretation Site: Exam was interpreted at [facility]. Left Ventricle: Normal left ventricular systolic function. No focal wall motion abnormalities. Normal left ventricular size. Mild concentric left ventricular hypertrophy. Impaired diastolic relaxation Grade I. Ejection fraction is measured at 58 %. Ejection Fraction is visually estimated to be 60 %. Global Longitudinal Strain is -12 %. GLS is abnormal. Right Ventricle: Normal right ventricular size. Normal right ventricular systolic function. Left Atrium: The left atrium is normal in size. Right Atrium: The right atrium is normal in size. Atrial Septum: Normal atrial septum. Mitral Valve: Normal appearance of the mitral valve. Mild mitral valve regurgitation. There is no hemodynamically significant mitral stenosis by Doppler. Aortic Valve: No evidence of hemodynamically significant aortic stenosis by Doppler. Aortic cusps appear mildly calcified. Trileaflet aortic valve. Mild to moderate aortic valve regurgitation. Tricuspid Valve: Normal appearance of the tricuspid valve. Normal right ventricular systolic pressure. Estimated peak RVSP is 32 mmHg. Mild tricuspid regurgitation. Pulmonic Valve: Normal appearance of the pulmonic valve. No pulmonic stenosis. Moderate pulmonic regurgitation. Pericardium: Trivial pericardial effusion. Aorta: No aortic root dilation. There is mild atherosclerosis in the aortic root. IVC: Normal size and normal respiratory collapse consistent with normal right atrial pressure (<5 mmHg). CONCLUSIONS: Normal left ventricular systolic function. No focal wall motion abnormalities. Normal left ventricular size. Mild concentric left ventricular hypertrophy. Impaired diastolic relaxation Grade I. Ejection fraction is measured at 58 %. Ejection Fraction is visually estimated to be 60 %. Global Longitudinal Strain is -12 %. GLS is abnormal. Mild mitral valve regurgitation. Aortic cusps appear mildly calcified. Mild to moderate aortic valve regurgitation. Mild tricuspid regurgitation. Moderate pulmonic regurgitation. Normal sinus rhythm. Electronically Signed By: Scot Schmid MD 01/13/2025 1:03:54 PM CDT Procedure Note Scot Schmid MD - 01/13/2025 [facility] Cardiology [address] [facility], [address], [place] [address] P:[phone] P:[phone] Echocardiographic Report Patient Name: SERGIO WHITE : 1955 Study Date: 01/13/2025 10:14:25 AM Sex: F Director Of Corporate Communications: CARLOS Location: [facility] Ref Provider: WES STOVER Height(Cm): 163 BSA: 1.72 Weight(Kg): 65.3 Heart Rate: 83 BP: 130 / 80 Quality: Good Order Provider: WES STOVER PROCEDURES: Echocardiographic Report: Transthoracic echocardiogram with complete 2D, M-Mode, and color Dopplerexamination. With Strain Analysis. INDICATIONS: Ventricular Trigeminy and Z01.818 Encounter for other preproceduralexamination. MEASUREMENTS: 2D/MM Value Range Doppler ValueRange EF Mod BP 58 % [ 54 - 74 ] HARINI Vmax 1.96cm2 [ 2.00 - 4.00 ] EF Teich MM 56 % [ 54 - 74 ] AV Mean PG 5mmHg Estimated EF 60 % AV Peak Marcello 1.48m/s [ 1.00 - 1.70 ] LV GLS -11.61 % AV Peak PG 9mmHg LVIDd 2D 3.91 cm [ 3.80 - 5.20 ] AV VTI 30.08cm LVIDd MM 4.38 cm [ 3.80 - 5.20 ] LVOT Diam 2.04cm [ 1.70 - 2.10 ] LVIDs 2D 3.02 cm [ 2.20 - 3.50 ] LVOT Peak Marcello 0.89m/s [ 0.70 - 1.10 ] LVIDs MM 3.11 cm [ 2.20 - 3.50 ] LVOT VTI 19.49cm LVPWd 2D 1.18 cm [ 0.60 - 0.90 ] MV E Peak Marcello 0.59m/s [ 0.60 - 1.30 ] LVPWd MM 0.97 cm [ 0.60 - 0.90 ] MV A Peak Marcello 0.98m/s [ 1.00 - 1.20 ] IVSd 2D 0.74 cm [ 0.60 - 0.90 ] MV Decel Time 193msec [ 104 - 258 ] IVSd MM 1.00 cm [ 0.60 - 0.90 ] PV Peak Marcello 0.92m/s [ 0.40 - 0.80 ] LA Dimension MM 2.24 cm [ 2.70 - 3.80 ] TR Peak Marcello 2.47m/s [ 1.00 - 2.80 ] AoR Diam MM 3.08 cm [ 2.70 - 3.70 ] TR Peak PG 24mmHg LA Volume 18.76 ml [ 22.00 - 52.00 ] RVSP 32.00mmHg [ 10.00 - 36.00 ] LA Volume Index 11 cc/m2 [ 16 - 28 ] RV S` 0.14m/s ACS MM 1.60 cm Lateral E` 0.04m/s [ 0.10 - 0.15 ] RA Volume 20.96 ml Septal E` 0.03m/s [ 0.08 - 0.15 ] E` 0.04 m/s E/E` 16 Tapse 1.85 cm [ 1.71 - 5.00 ] 2D/MM Value Range Doppler ValueRange - FINDINGS: Interpretation Site: Exam was interpreted at [facility]. Left Ventricle: Normal left ventricular systolic function. No focal wall motionabnormalities. Normal left ventricular size. Mild concentric left ventricular hypertrophy.Impaired diastolic relaxation Grade I. Ejection fraction is measured at 58 %. EjectionFraction is visually estimated to be 60 %. Global Longitudinal Strain is -12 %. GLS isabnormal. Right Ventricle: Normal right ventricular size. Normal right ventricular systolicfunction. Left Atrium: The left atrium is normal in size. Right Atrium: The right atrium is normal in size. Atrial Septum: Normal atrial septum. Mitral Valve: Normal appearance of the mitral valve. Mild mitral valve regurgitation.There is no hemodynamically significant mitral stenosis by Doppler. Aortic Valve: No evidence of hemodynamically significant aortic stenosis by Doppler.Aortic cusps appear mildly calcified. Trileaflet aortic valve. Mild to moderate aorticvalve regurgitation. Tricuspid Valve: Normal appearance of the tricuspid valve. Normal right ventricularsystolic pressure. Estimated peak RVSP is 32 mmHg. Mild tricuspid regurgitation. Pulmonic Valve: Normal appearance of the pulmonic valve. No pulmonic stenosis. Moderatepulmonic regurgitation. Pericardium: Trivial pericardial effusion. Aorta: No aortic root dilation. There is mild atherosclerosis in the aorticroot. IVC: Normal size and normal respiratory collapse consistent with normal rightatrial pressure (<5 mmHg). CONCLUSIONS: Normal left ventricular systolic function. No focal wall motionabnormalities. Normal left ventricular size. Mild concentric left ventricular hypertrophy.Impaired diastolic relaxation Grade I. Ejection fraction is measured at 58 %. EjectionFraction is visually estimated to be 60 %. Global Longitudinal Strain is -12 %. GLS isabnormal. Mild mitral valve regurgitation. Aortic cusps appear mildly calcified. Mild to moderate aortic valveregurgitation. Mild tricuspid regurgitation. Moderate pulmonic regurgitation. Normal sinus rhythm. Electronically Signed By: Scot Schmid MD 01/13/2025 1:03:54 PM CDT Wes Stover MD CV ECHO PROCEDURES Final Result * (ABNORMAL) POCT lipid panel (01/01/2025 3:36 PM CDT) Cholesterol, POC 208 <200 MG/DL HDL, POC 46 >=40 mg/dL Triglycerides, POC 367(A) <=149 mg/dL LDL Cholesterol POC 88 <=129 mg/dL Chol/HDL Ratio, POC 4.5 NONE Non-HDL Cholesterol, POC 162 NONE mg/dL Cholesterol Total, POC 208(A) 30 - 199 mg/dL Capillary blood 01/01/2025 3 :36 PM CDT Wes Stover MD POINT OF CARE TEST ORDER MELISSA Final Result from Last 3 Months Insurance MEDICARE ADVANTAGE [facility] MEDICARE Address: [facility] [address] [place] [address] Care Teams Hammer Smith Relationship Specialty Start Date End Date Janie Aaron MD [address] [facility] [address] [place], [place] [id number] PCP - General General Surgery 10/14/24
[2025-01-27] MEDS: LACTATED RINGERS 1,000 ML 30 ML IV CONT ×2 (10:45→14:45)
[2025-01-27] MEDS: ACETAMINOPHEN 500 MG TABLET 1000 MG PO (10:59)
--- NOTE | 2025-01-27 12:38 | WPDANESEPPF ---
Anes - Initial Pre Proc Eval Procedure: Operation Date: 01/27/25 12:00 Proposed Procedures p Right Breast Lumpectomy with Mag Seed Localization, Possible Adjacent Tissue Transfer - Janie Aaron MD Date/Time: 01/27/25 12:38 Surgeon: Janie Aaron MD Pre Op Diagnosis: right breast Lump Patient Data Age: 69 Gender: F Height: 1.61 m Weight: 65.1 kg Last Vital Signs Temp 36.6 C 01/27/25 10:54 Pulse 81 01/27/25 10:54 BP 146/80 H 01/27/25 10:54 Pulse Ox 99 01/27/25 10:54 O2 Del Method Room Air 01/27/25 10:54 Allergies Allergy/AdvReac Type Severity Reaction Status Date / Time No Known Allergies Allergy Verified 01/22/25 08:00 Home Medications ?Medication ?Instructions ?Recorded ?Confirmed ?Type calcium 600 mg (as 1 tablet PO DAILY 04/21/19 01/16/25 History carbonate)-vitamin D3 20 mcg (800 unit) tablet (Caltrate with Vitamin D3) multivitamin 1 tablet PO DAILY 04/21/19 01/16/25 History ascorbic acid (vitamin C) 1,000 mg 1 g PO DAILY 09/26/24 01/16/25 History tablet (C-1000) vit A 300 mcg-C 200 mg-E 27 1 tablet PO DAILY 09/26/24 01/16/25 History mg-lutein 2 mg and minerals tablet (Eye Health Plus Lutein) biotin 5 mg capsule 5 mg PO DAILY 01/16/25 01/16/25 History Patient hx anesthesia problems: none Family hx anesthesia problems: none Results Review: All pre-operative results and documents have been reviewed as part of the pre-operative evaluation. [facility] Past Medical History Medical History (Updated 01/27/25 @ 12:38 by Nic Betancur MD) HLD (hyperlipidemia) Cardiac rhythm disturbance Bigeminy Surgical History Surgical History History of elective section Family History Family History Mother Family history of primary malignant neoplasm of liver Other Asthma Diabetes mellitus Family history of Hodgkin's lymphoma Family history of cardiovascular disease Family history of malignant neoplasm Social History Social History Smoking status: Never smoker Second hand tobacco smoke exposure: No Alcohol intake: never Substance use: never Substance use type: does not use Do You Feel Safe in your Home?: Yes Lack of Transportation: No Lack of Food: Never True Current Housing: Decline to Answer Concerned About Future Housing: Decline to Answer Difficulty Paying Gas/Electric Bills: Decline to Answer Difficulty Paying for Meds: Decline to Answer Currently Unemployed: Decline to Answer Education: Decline to Answer Difficulty w/ Childcare or Family Care: Decline to Answer Living arrangements: with family Occupation/Education: retired Gender identity (if verbalized by the patient): Female Spiritual care concerns: No Anes - Eval Final PreProcedure Day of Procedure 01/27/25 12:38 Patient weight: normal Heart: regular rate and rhythm Lungs: clear to auscultation Airway: Mallampati scale class II Neurological: alert and oriented Last oral intake: >/= 8 hours ASA classification: II Emergent: no Anesthetic plan: proceed Anesthesia type and monitoring: general LMA and standard monitoring Results Review: All pre-operative results and documents have been reviewed as part of the pre-operative evaluation. Informed Consent: The patient's anesthetic plan and its attendant risks and benefits were discussed with the patient/family/POA. Questions were solicited and answers provided to the satisfaction of the patient/family/POA.
--- NOTE | 2025-01-27 13:06 | WPDHPUPDATE1 ---
History and Physical Update Update Date/Time: 01/27/25 13:06 - right breast lumpectomy with Mag seed localization History and Physical has been reviewed, including an updated exam of the patient. There are NO changes in the patient's condition. Risks, benefits, and alternatives have been discussed and questions answered. Patient agrees to proceed with procedure.
[2025-01-27] MEDS: ceFAZolin 2 GM in SODIUM CHLORIDE 0.9% IV 50 ML 100 ML IVPB (13:29)
[2025-01-27] MEDS: BUPIVACAINE/EPINEPHRINE 0.5% 30 ML VIAL INFILTRATE (13:49)
--- NOTE | 2025-01-27 14:10 | SUR.OPER ---
Right Breast Lumpectomy sent with RICK Martinez and received in pathology by Mello
--- NOTE | 2025-01-27 14:15 | S_PTH ---
PATIENT: Leeanne White LOC: [facility] U#:[id number] AGE/SX: 69/F ROOM: RE01/27/[address]: Janie Aaron MD : 1955 BED: DIS: 01/27/2025 SPEC #: [id number] RECD: 01/27/25 14:26 STATUS: RODERICK REPanchito #: [id number] ADRIANE: 01/27/25 14:[address]: Janie Aaron DEPT: [facility] Surgical RECD BY: Nancy Mullins MLT, ([facility]) ENTERED: 01/27/25 14:26 SP TYPE: Surgical OTHR DR: Manjit Lay MD Tissues: A - Breast Lumpectomy Procedures: Hematoxylin and Eosin Stain E-Cadherin Gross and Microscopic Level 5 ER-60 NM-60 MIB-60 HER 2-60
--- NOTE | 2025-01-27 14:20 | P.OP_ITS ---
Procedure Note - Detailed Date of Procedure 01/27/25 Pre-op Diagnosis Discordant core needle pathology report and imaging results Post-op Diagnosis Same Procedure Performed Right breast lumpectomy with magseed localization Surgeon Janie Aaron MD Anesthesia MAC Description of Procedure Patient was identified in the pre-operative area and brought to the OR suite. She underwent tumor localization previously by IR with magseed placement. She was laid supine in the operating table and sequential compression devices were applied. General anesthesia was induced without difficulties. The right chest was prepped and draped in a sterile fashion. The sentimag probe was used to identify the area where the magseed was placed and a superior curvilinear incision was made. Dissection was carried down through the subcutaneous tissue into the breast tissue. The lesion with associated magseed was identified using sentimag probe, and a rim of normal breast tissue was excised along with the lesion as our lumpectomy specimen. Once the specimen was completely excised, it was oriented using surgical paint according to senior account clerk instructions. The specimen was placed in the faxitron and a radiograph was obtained and sent to Radiology for radiographic confirmation of biopsy marker and magseed within the specimen. Once the radiographic confirmation was received, the wound was irrigated with saline and hemostasis was assured. The deep dermal layer was approximated using interrupted 3-0 vicryl followed by 4-0 monocryl for the skin. Dermabond was applied followed by a surgical bra. Patient was awoken from anesthesia and taken to the recovery area in stable condition. All needles, instruments and sponge counts were correct as reported by the operating room staff. Patient tolerated the procedure well with no immediate complications. Estimated Blood Loss 10 Pathology Yes Complications No immediate complications Condition Stable Disposition PACU [facility] Billing Surgery - Charge Forward: Surgery Billing (CPT 54599)
== END 2025-01-27 15:55 | disposition home or self-care (01) ==
PROVIDERS: PCP Family Medicine; Visit Provider Surgery
PROC: (CPT 19301; principal; 2025-01-27 12:00)
DX: C50.411 Malignant neoplasm of upper-outer quadrant of right female breast (principal); E78.5 Hyperlipidemia, unspecified; I49.8 Other specified cardiac arrhythmias; Z98.890 Other specified postprocedural states; Z80.0 Family history of malignant neoplasm of digestive organs; Z80.7 Family history of other malignant neoplasms of lymphoid, hematopoietic and related tissues; Z82.49 Family history of ischemic heart disease and other diseases of the circulatory system
CPT/HCPCS: 19301; 76098; 88307; 88342; 88360; J0690; A9270; J0330; J1100; J1200; J2003; J2704; J3010; J7120; Q9968

== ENCOUNTER 2025-02-05 08:31 | Outpatient (CLI) | payer MEDICARE, SELFPAY ==
--- NOTE | ~2025-02-05 | MR_ITS ---
MR breast BI wo/w con 02/09/2025 12:58 CDT INDICATION: Malignant neoplasm of the right breast TECHNIQUE: MRI of the breasts perform using standard protocol pre-and post IV contrast with the following sequences: Axial T2 STIR, axial T1, axial vibrant T1 with fat suppression precontrast and multiphasic postcontrast. 13 cc MultiHance administered intravenously COMPARISON: Comparison to multiple prior studies sequentially, with oldest reviewed study dated 06/20/2022. FINDINGS: Right breast: In the upper central aspect of the right breast there is a large fluid collection measuring approximately 5 x 2.5 x 1.9 cm, most likely a large postoperative hematoma/seroma. Surrounding this collection there is abnormal enhancing tissue most prominent inferiorly, where a confluent area of enhancement measures 2.4 x 1.4 x 1.4 cm. This enhancing focus demonstrates rapid initial contrast uptake with washout kinetics, highly suspicious enhancement pattern. This area of enhancement extends posteriorly to the pectoralis muscle, raising concern for possible involvement or proximity to the chest wall.. No abnormal right axillary lymph nodes. LEFT BREAST: No signal abnormalities on precontrast sequences. There is mild background parenchymal enhancement. No enhancing lesions following contrast administration. No areas of enhancement meeting threshold criteria on CAD analysis. No evidence of signal abnormalities in the axillary or internal mammary node distributions. IMPRESSION: 1: Right breast: Suspicious enhancing tissue surrounding postoperative hematoma/trauma in the right breast with the largest confluent focus inferiorly measuring 2.4 cm, demonstrating rapid washout kinetics. The abnormal enhancement extends posteriorly towards the pectoralis muscle raising concern for possible residual or recurrent disease adjacent to the chest wall. Correlation with operative history and prior pathology is advised. BI-RADS Category 6. 2: Left breast: Negative. No evidence of malignancy. BI-RADS category 1. Recommend annual mammography follow-up. Reviewed, dictated and finalized at location B. IMPRESSION: 1: Right breast: Suspicious enhancing tissue surrounding postoperative hematom a/trauma in the right breast with the largest confluent focus inferiorly measur ing 2.4 cm, demonstrating rapid washout kinetics. The abnormal enhancement exte nds posteriorly towards the pectoralis muscle raising concern for possible resi dual or recurrent disease adjacent to the chest wall. Correlation with operativ e history and prior pathology is advised. BI-RADS Category 6. 2: Left breast: Negative. No evidence of malignancy. BI-RADS category 1. Re commend annual mammography follow-up.
--- OUTSIDE RECORDS SUMMARY | 2025-02-05 08:36 | XMS_ITS | Clinical Summary ---
Author Organization [facility] [address] Address [address] [place] [phone] Care Team Providers Care Load Out Person Name Role Phone Janie Aaron MD Primary Care Provider [phone] Allergies No known active allergies Medications calcium carbonate-vit D3-min 600 mg calcium- 200 unit tablet Take by mouth Active [id number]-aini- Lmfolate-algal 27 mg iron-1.13 mg-581.92 mg capsule Take by mouth Active saw palmetto 450 mg capsule Take by mouth Active Active Problems Problem Noted Date Diagnosed Date Preoperative clearance 01/01/2025 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/01/2025 Encounters Date Type Department Care Team Description 01/20/2025 Telephone [facility] Cardiology [address] [place] [address] [address] [place] [phone] Wes Stover MD 01/15/2025 Telephone [facility] Cardiology [address] [place] [address] [address] [place] [phone] Wes Stover MD cardiac clearance 01/13/2025 10:15 AM CDT Ancillary Procedure [facility] Cardiology at [address] [place] [phone] Preoperative clearance; 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/01/2025 2:00 PM CDT Office Visit [facility] Cardiology at [address] [place] [phone] Wes Stover MD Preoperative clearance (Primary [...] on file Legal 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 Left Ventricle: Normal left ventricular systolic function. [...] Procedure Note Scot Schmid MD - 01/13/2025 [facility] Cardiology [address] [facility], [address], [place] [address] P:[phone] P:[phone] Echocardiographic Report Patient Name: SERGIO WHITE : 1955 Study Date: 01/13/2025 10:14:25 AM Sex: F Advertising Specialist: CARLOS Location: [facility] Ref Provider: WES STVOER Height(Cm): 163 BSA: 1.72 Weight(Kg): 65.3 Heart [...] FINDINGS: Interpretation Site: Exam was interpreted at [facility]. Left Ventricle: Normal left ventricular systolic function. [...] from Last 3 Months Insurance MEDICARE ADVANTAGE Care Teams Load Out Person Relationship Specialty Start Date End Date Janie Aaron MD [address] [facility] 22 [place], [place] [id number] PCP - General General Surgery 10/14/24
--- OUTSIDE RECORDS SUMMARY | 2025-02-05 08:36 | XMS_ITS | Encounter Summary ---
Author Organization [facility] Healthcare Address [address] [place] [address] Care Team Providers Care Livestock Yard Supervisor Name Role Phone Janie Aaron MD Primary Care Provider [phone] Encounter Details Date Type Department Care Team (Late st Contact Info) Description 01/20/2025 Telephone [facility] Cardiology [address] [facility] 162 [facility] 102 [place] [phone] Wes Stover MD [address] [facility] 102 [place] [address] Social History Tobacco Use Types Packs/Day Years Used Date Smoking Tobacco: Never Comments Unknown Sex and Gender Information Value Date Recorded Sex Assigned at Not on file 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 * Telephone Encounter - Karen Jeffries RN - 01/20/2025 11:10 AM CDT Will forward to [facility]. Please advise, thank you! Per last OV [...] on filedocumented in this encounter Care Teams Livestock Yard Supervisor Relationship Specialty Start Date End Date Janie Aaron MD [address] [address] PCP - General General Surgery 10/14/24 documented as of this encounter
== END 2025-02-05 08:32 | disposition home or self-care (01) ==
PROVIDERS: PCP Family Medicine; Visit Provider Surgery
DX: C50.911 Malignant neoplasm of unspecified site of right female breast (principal); R92.8 Other abnormal and inconclusive findings on diagnostic imaging of breast
CPT/HCPCS: 77049; A9577; C8908

== ENCOUNTER 2025-02-11 00:59 | Day surgery (SDC) | payer MEDICARE, SELFPAY ==
[2025-02-04 09:16] VITALS: BMI 24.7
--- NOTE | 2025-02-04 09:23 | PC.NURSE ---
[facility] has started construction of its new state of the art ER which will open Spring 2026. With this, we anticipate parking may be a challenge for some our surgical patients and families. Parking spaces are limited but are available for all Surgical, obstetrics, and ER patients sharing this lot. If you arrive and find you are having a hard time finding a parking space, please note that we understand the challenges, please drive around the hospital and park near Hospital Entrance 1. When you enter this entrance, you can ask a volunteer to direct or take you back to the surgical waiting area to check in. We appreciate everyone?s understanding of these expected challenges while we build for your future. Report to the Outpatient Waiting Room, entrance under the green pavilion located off [address], at time __11:30am on date __02/11/25 . Planned Procedure Time: __1:30pm .? Time changes happen often and if your time is changed the preop area will call you the afternoon before. - You and your visitor will be asked to self-screen and do not enter if you have any COVID symptoms. Please call surgeon if you need to reschedule. - A mask is optional within the hospital at this time. Patients may have clear liquids (water, carbonated beverages, clear teas, apple juice) until 3 hours prior to surgery with a maximum of 20 ounces. - No food from midnight until time of surgery and no smoking, or chewing tobacco (or any form of nicotine). No chewing gum, candy or mints. (10:30am) Take only the following medications with a SIP of water on the morning of surgery: NONE DO NOT STOP ANY OF YOUR OTHER PRESCRIPTION MEDICATIONS PRIOR TO SURGERY EXCEPT THE FOLLOWING Hold all vitamins and supplements for 3 days per anesthesiologist. Date of last dose is 02/07/25 Medications to discontinue per physician NONE Date to take last dose NONE Please no make-up, nail hungarian, hairspray, perfume, deodorant, or body powder the day of surgery.? No jewelry (including any body piercings) or valuables the day of surgery, leave them at home.? Please take a shower or bath the night before, or the morning of, surgery with an antibacterial soap.? Wear comfortable, loose fitting clothing. - Jewelry must be removed prior to entering the operating room.? Rings and piercings that are not removed may be cut off. - The hospital will not accept responsibility for valuables.? - Please leave all valuables, including medications, at home the day of surgery. If you are going home after surgery, a licensed stunt driver must drive you home.? - NO public transportation without another adult if you receive anesthesia. - We recommend that an adult stay with you for 24 hours following discharge. - We also recommend that you do not drive, make important decision, drink alcoholic beverages, or take any drugs that were not prescribed by your health care provider for at least 24 hours after your discharge time. Follow any additional instructions given to you from your surgeon. Telephone instructions given to __Patient and asked if any additional questions and then verbalized understanding. Patient advised to call surgeon office or pre surgery nurse liaison [phone] if any additional questions.
[2025-02-11] VITALS (7 sets, daily range): BP systolic 102–165; BP diastolic 53–82; PULSE 64–82; RESP 14; TEMP 36.7; O2SAT 99–100; BMI 24.5
--- OUTSIDE RECORDS SUMMARY | 2025-02-11 02:16 | XMS_ITS | Clinical Summary ---
Author Organization [facility] [address] [place] Address [address] [place] [phone] Care Team Providers Care Certified Surgical Technician Name Role Phone Janie Aaron MD Primary Care Provider [phone] Allergies No known active allergies Medications calcium carbonate-vit D3-min 600 mg calcium- 200 unit tablet Take by mouth Active -mwqx- Lmfolate-algal 27 mg iron-1.13 mg-581.92 mg capsule Take by mouth Active saw palmetto 450 mg capsule Take by mouth Active Active Problems Problem Noted Date Diagnosed Date Preoperative clearance 01/01/2025 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/01/2025 Encounters Date Type Department Care Team Description 01/20/2025 Telephone [facility] Cardiology [address] [place] [address] [address] [place] [phone] Wes Stover MD 01/15/2025 Telephone [facility] Cardiology [address] [place] [address] [address] [place] [phone] Wes Stover MD cardiac clearance 01/13/2025 10:15 AM CDT Ancillary Procedure [facility] Cardiology at [address] [place] [phone] Preoperative clearance; 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/01/2025 2:00 PM CDT Office Visit [facility] Cardiology at [address] [place] [phone] Wes Stover MD Preoperative clearance (Primary [...] on file 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 Left Ventricle: Normal left ventricular systolic [...] Procedure Note Scot Schmid MD - 01/13/2025 [facility] Cardiology [address] [facility], [address], [place] [address] P:[phone] P:[phone] Echocardiographic Report Patient Name: SERGIO WHITE : 1955 Study Date: 01/13/2025 10:14:25 AM Sex: F Hotel Supplies Salesperson: CARLOS Location: [facility] Ref Provider: WES STOVER [...] FINDINGS: Interpretation Site: Exam was interpreted at [facility]. Left Ventricle: Normal left ventricular systolic [...] 3 Months Insurance MEDICARE ADVANTAGE Care Teams Certified Surgical Technician Relationship Specialty Start Date End Date Janie Aaron MD [address] [facility] 22 [place], [place] [phone] PCP - General General Surgery 10/14/24
--- OUTSIDE RECORDS SUMMARY | 2025-02-11 02:16 | XMS_ITS | Encounter Summary ---
Author Organization [facility] Healthcare Address [address] [place] [address] Care Team Providers Care Manager User Interface Name Role Phone Janie Aaron MD Primary Care Provider [phone] Encounter Details Date Type Department Care Team (Late st Contact Info) Description 01/20/2025 Telephone [facility] Cardiology [address] [facility] 162 [facility] 102 [place] [address] Wes Stover MD [address] [facility] 102 [place] [address] Social History Tobacco Use Types Packs/Day Years Used Date Smoking Tobacco: Never Comments Unknown Sex and Gender Information Value Date Recorded Sex Assigned at Not on file 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 * Telephone Encounter - Karen Jeffries RN - 01/20/2025 11:10 AM CDT Will forward to [facility]. Please advise, thank you! Per last [...] on filedocumented in this encounter Care Teams Manager User Interface Relationship Specialty Start Date End Date Janie Aaron MD [address] [address] PCP - General General Surgery 10/14/24 documented as of this encounter
--- NOTE | 2025-02-11 12:24 | WPDANESEPPF ---
Anes - Initial Pre Proc Eval Procedure: Operation Date: 02/11/25 13:30 Proposed Procedures p Re- Excision Right Breast Lumpectomy Margins - Janie Aaron MD Date/Time: 02/11/25 12:24 Surgeon: Janie Aaron MD Pre Op Diagnosis: malignant neoplasm right breast Patient Data Age: 69 Gender: F Height: 1.63 m Weight: 65.4 kg Allergies Allergy/AdvReac Type Severity Reaction Status Date / Time No Known Allergies Allergy Verified 02/04/25 09:13 Home Medications ?Medication ?Instructions ?Recorded ?Confirmed ?Type calcium 600 mg (as 1 tablet PO DAILY 04/21/19 02/04/25 History carbonate)-vitamin D3 20 mcg (800 unit) tablet (Caltrate with Vitamin D3) multivitamin 1 tablet PO DAILY 04/21/19 02/04/25 History ascorbic acid (vitamin C) 1,000 mg 1 g PO DAILY 09/26/24 02/04/25 History tablet (C-1000) vit A 300 mcg-C 200 mg-E 27 1 tablet PO DAILY 09/26/24 02/04/25 History mg-lutein 2 mg and minerals tablet (Eye Health Plus Lutein) biotin 5 mg capsule 5 mg PO DAILY 01/16/25 02/04/25 History Patient hx anesthesia problems: none Family hx anesthesia problems: none Results Review: All pre-operative results and documents have been reviewed as part of the pre-operative evaluation. [facility] Past Medical History Medical History HLD (hyperlipidemia) Cardiac rhythm disturbance Bigeminy Surgical History Surgical History S/P lumpectomy, right breast History of elective section Family History Family History Mother Family history of primary malignant neoplasm of liver Other Asthma Diabetes mellitus Family history of Hodgkin's lymphoma Family history of cardiovascular disease Family history of malignant neoplasm Social History Social History Smoking status: Never smoker Second hand tobacco smoke exposure: No Alcohol intake: never Substance use: never Substance use type: does not use Do You Feel Safe in your Home?: Yes Lack of Transportation: No Lack of Food: Never True Current Housing: Decline to Answer Concerned About Future Housing: Decline to Answer Difficulty Paying Gas/Electric Bills: Decline to Answer Difficulty Paying for Meds: Decline to Answer Currently Unemployed: Decline to Answer Education: Decline to Answer Difficulty w/ Childcare or Family Care: Decline to Answer Living arrangements: with family Additional living arrangements comments: Occupation/Education: retired Gender identity (if verbalized by the patient): Female Spiritual care concerns: No Anes - Eval Final PreProcedure Day of Procedure 02/11/25 12:24 Patient weight: normal Heart: regular rate and rhythm Lungs: clear to auscultation Airway: Mallampati scale class II Neurological: alert and oriented Last oral intake: >/= 8 hours ASA classification: III Emergent: no Anesthetic plan: proceed Anesthesia type and monitoring: general GIVS and standard monitoring Results Review: All pre-operative results and documents have been reviewed as part of the pre-operative evaluation. Informed Consent: The patient's anesthetic plan and its attendant risks and benefits were discussed with the patient/family/POA. Questions were solicited and answers provided to the satisfaction of the patient/family/POA.
[2025-02-11] MEDS: ACETAMINOPHEN 500 MG TABLET 1000 MG PO (12:45)
[2025-02-11] MEDS: LACTATED RINGERS 1,000 ML 30 ML IV CONT (12:45)
[2025-02-11] MEDS: LIDOCAINE 1% LOCAL INJ 10 ML VIAL INFILTRATE (13:16)
[2025-02-11] MEDS: ceFAZolin 2 GM in SODIUM CHLORIDE 0.9% IV 50 ML 100 ML IVPB (13:16)
[2025-02-11] MEDS: BUPIVACAINE/EPINEPHRINE 0.5% 30 ML VIAL 10 ML INFILTRATE (13:16)
[2025-02-11] MEDS: BACITRACIN OINTMENT 15 GM TUBE 1 APPLIC TOPICAL (13:20)
--- NOTE | 2025-02-11 13:44 | S_PTH ---
PATIENT: Leeanne White LOC: [facility] U#:[id number] AGE/SX: 69/F ROOM: RE02/11/[address]: Janie Aaron MD : 1955 BED: DIS: 02/11/2025 SPEC #: [id number] RECD: 02/11/25 14:06 STATUS: RODERICK REQ #: [id number] ADRIANE: 02/11/25 13:[address]: Janie Aaron DEPT: [facility] Surgical RECD BY: Paula Crum ENTERED: 02/11/25 14:07 SP TYPE: Surgical OTHR DR: Manjit Lay MD Tissues: A - Breast Re-Excision Procedures: P63 Marshall Keratin Hematoxylin and Eosin Stain E-Cadherin Gross and Microscopic Level 5
--- NOTE | 2025-02-11 13:52 | SUR.OPER ---
johnathon delivered by Daimán Mitchell
--- NOTE | 2025-02-11 13:57 | W.PM.PROC2 ---
Procedure Note - Detailed Date of Procedure 02/11/25 Pre-op Diagnosis Right breast Invasive lobular carcinoma Post-op Diagnosis Same Procedure Performed Re-excision of posterior lumpectomy margin Surgeon Janie Aaron MD Anesthesia MAC Description of Procedure Patient was identified in the preoperative holding area brought to the operating room suite. She was laid supine in the OR table sequential compression devices were applied. Anesthesia was induced without difficulty. The right breast was prepped and draped in a sterile fashion. I proceeded to open the previous lumpectomy incision in the upper breast area with a 15 blade and easily identified the lumpectomy cavity that had a small amount of seroma fluid. I excised the posterior margin and this was sent as a fresh specimen to pathology. The cavity was irrigated with saline and hemostasis was assured. Several intraparenchymal sutures were placed to approximate the breast tissue and decrease the risk of seroma. The deep dermal layer was closed with interrupted 3-0 vicryl and 4-0 monocryl subcuticular fashion for the skin. Dermabond was applied followed by a pressure dressing and compression bra. Patient was awoken from anesthesia and taken to the recovery area in stable condition. All needles, instruments and sponges counts were corrected as reported by the OR staff. Patient tolerated the procedure well with no immediate complications. Estimated Blood Loss 5 Pathology Yes Complications No immediate complications Condition Stable Disposition PACU [facility] Billing Surgery - Charge Forward: Surgery Billing (CPT 16308 - modifier 58)
[2025-02-11] MEDS: oxyCODONE HCL (*CRX) 5 MG TAB IR PO (15:07)
[2025-02-11] MEDS: ONDANSETRON INJ 4 MG/2 ML VIAL IV PUSH (15:27)
--- NOTE | 2025-02-12 08:12 | WPDHPUPDATE1 ---
History and Physical Update Update Date/Time: 02/12/25 08:12 - excision of posterior right lumpectomy margin. History and Physical has been reviewed, including an updated exam of the patient. There are NO changes in the patient's condition. Risks, benefits, and alternatives have been discussed and questions answered. Patient agrees to proceed with procedure.
== END 2025-02-11 16:20 | disposition home or self-care (01) ==
PROVIDERS: PCP Family Medicine; Visit Provider Surgery
PROC: (CPT 19301; principal; 2025-02-11 13:30)
DX: C50.911 Malignant neoplasm of unspecified site of right female breast (principal)
CPT/HCPCS: 19301; 88307; 88342; J0690; A9270; J1100; J1200; J2003; J2405; J2704; J3010; J7120

== ENCOUNTER 2025-04-15 09:41 | Outpatient (CLI) | payer MEDICARE, SELFPAY ==
--- OUTSIDE RECORDS SUMMARY | 2025-04-15 10:39 | XMS_ITS | Clinical Summary ---
Author Organization [facility] Dionne chen [address] Address [address] [place] [address] Care Team Providers Care Engineering Patternmaker Name Role Phone Unavailable Primary Care Provider Unavailabl e Allergies No known active allergies Medications Calcium Carbonate-Vit D3-Min 600 mg calcium- 200 unit Tablet Take by mouth. Active ASCORBIC ACID, VITAMIN C, ORAL Take by mouth. Active biotin 1 mg Capsule Take by mouth. Active multivitamin (DAILY-DESIREE) tablet Take 1 Tablet by mouth daily. Active Active Problems No known active problems Encounters Date Type Department Care Team Description 04/15/2025 Telephone [facility] Oncology and [facility] [address] [place] [address] Devendra Baker MD labs for appt 04/13/2025 Orders Only [facility] Oncology and [facility] [address] [place] [address] Devendra Baker MD Malignant neoplasm of upper-outer quadrant of right breast in female, estrogen receptor positive (CMS/HCC) (Primary Dx) 03/17/2025 External Device Data STL ABSTRACTION Provider, Abstract 03/17/2025 External Device Data STL ABSTRACTION Provider, Abstract 03/11/2025 External Device Data STL ABSTRACTION Provider, Abstract 03/10/2025 4:00 PM CDT Office Visit [facility] Oncology and [facility] [address] [place] [phone] Devendra Baker MD Malignant neoplasm of upper-outer quadrant of right breast in female, estrogen receptor positive (CMS/HCC) (Primary Dx) from Last 3 Months Family History Medical History Relation Name Comments Cancer Brother Heart Disease Brother Cancer Child 1 Heart Disease Child 1 No Known Problems Child 2 No Known Problems Child 3 Heart Disease Father Cancer Mother Heart Disease Mother No Known Problems Sister Relation Name Status Comments Brother Alive Child 1 Alive Child 2 Alive Child 3 Alive Father Mother Sister Alive Social History Tobacco Use Types Packs/Day Years Used Date Smoking Tobacco: Never Smokeless Tobacco: Never Tobacco Cessation:Counseling Given: Not Answered Alcohol Use Standard Drinks/Week Comments Never 0 (1 standard drink = 0.6 oz pur e alcohol) Comments Unknown Sex and Gender Information Value Date Recorded Sex Assigned at Not on file Legal Sex Female 10:30 AM CDT Gender Identity Not on file Sexual Orientation Not on file Last Filed Vital Signs Vital Sign Reading Time Taken Comments Blood Pressure 132/86 03/10/2025 3:19 PM CDT Pulse 102 03/10/2025 3:12 PM CDT Temperature 37.1 C (98.7 F) 03/10/2025 3:12 PM CDT Respiratory Rate 15 03/10/2025 3:12 PM CDT Oxygen Saturation 96% 03/10/2025 3:12 PM CDT Inhaled Oxygen Concentration - - Weight 65.9 kg (145 lb 3.2 oz) 03/10/2025 3:12 P M CDT Height 162.6 cm (5' 4) 03/10/2025 3:12 PM CDT Body Mass Index 24.92 03/10/2025 3:12 PM CDT Plan of Treatment Upcoming Encounters Date Type Department Care Team (Late st Contact Info) Description 04/22/2025 10:15 AM YARDAGE TUFTING MACHINE OPERATOR Office Visit [facility] Oncology and Hematology - [place] [address] [facility] [address] [place] [address] Devendra Baker MD [address] [facility] [address] [place] [address] Health Maintenance Due Date Last Done Comments DTAP/TDAP/TD VACCINES (1 - Tdap) 1972 BREAST CANCER SCREENING 1993 COLORECTAL SCREENING 1998 Colorectal Cancer Screening 1998 FIT-DNA Q 3 years 1998 FIT/FOBT Q 1 year 1998 Flex Sig/CT Colonography Q 5 years 1998 PNEUMOCOCCAL VACCINE 50+ YEARS (1 of 1 - PCV) 10/04/19 04 ZOSTER VACCINE (1 of 2) 10/04/2003 OSTEOPOROSIS SCREENING 2018 [place]) Prev entative Visit/Annual Wellness Visit 05/14/2024 INFLUENZA VACCINE (#1) 2024 RSV VACCINE (60+ or ) (1 - 1-dose 75+ series) 2028 Insurance [facility] [id number]
--- OUTSIDE RECORDS SUMMARY | 2025-04-15 10:39 | XMS_ITS | Encounter Summary ---
Author Organization [facility] Address [address] [place] [address] Care Team Providers Care Job Developer Name Role Phone Unavailable Primary Care Provider Unavailabl e Reason for Visit * Reason Onset Date Comments labs for appt 04/15/2025 Encounter Details Date Type Department Care Team (Late Contact Info) Description 04/15/2025 Telephone [facility] Oncology and Hematology [facility] [address] [facility] [address] [place] [address] Devendra Baker MD [address] [facility] [address] [place] [address] labs for appt Social History Tobacco Use Types Packs/Day Years Used Date Smoking Tobacco: Never Smokeless Tobacco: Never Alcohol Use Standard Drinks/Week Comments Never 0 (1 standard drink = 0.6 oz pur e alcohol) Comments Unknown Sex and Gender Information Value Date Recorded Sex Assigned at Not on file Legal Sex Female 10:30 AM CDT Gender Identity Not on file Sexual Orientation Not on file documented as of this encounter Miscellaneous Notes * Telephone Encounter - Madeleine Cai - 04/15/2025 8:41 AM CST LVM for patient regarding labs for her appointment tomorrow. She would need to get them done FRANCISCO for the appointment tomorrow. ANICAL INSPECTOR documented in this encounter Plan of Treatment Upcoming Encounters Date Type Department Care Team (Late st Contact Info) Description 04/22/2025 10:15 AM MECHANICAL INSPECTOR Office Visit [facility] Oncology and Hematology - [place] [address] [facility] [address] [place] [address] Devendra Baker MD [address] [facility] [address] [place] [address] documented as of this encounter Visit Diagnoses Not on filedocumented in this encounter
--- OUTSIDE RECORDS SUMMARY | 2025-04-15 10:39 | XMS_ITS | Clinical Summary ---
Author Organization [address] Address [address] [place] [id number] Care Team Providers Care Truck Driver Salesperson Name Role Phone Janie Aaron MD Primary Care Provider [phone] Allergies No known active allergies Medications calcium carbonate-vit D3-min 600 mg calcium- 200 unit tablet Take by mouth Active kxgyuvgr11-emph- Lmfolate-algal 27 mg iron-1.13 mg-581.92 mg capsule Take by mouth Active saw palmetto 450 mg capsule Take by mouth Active Active Problems Problem Noted Date Diagnosed Date Preoperative clearance 01/01/2025 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/01/2025 Encounters Date Type Department Care Team Description 01/20/2025 Telephone [facility] Cardiology [address] [place] [phone] Wes Stover MD 01/15/2025 Telephone [facility] Cardiology [address] [place] [phone] Wes Stover MD cardiac clearance from Last 3 Months Surgical History Surgery [...] on file 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
[2025-04-15 18:47] LABS: Anion Gap 4 mmol/L (4-12); Blood Urea Nitrogen 15 mg/dL (7-17); Calcium 10.1 mg/dL (8.4-10.2); Carbon Dioxide 30 mmol/L (22-30); Chloride 104 mmol/L (98-107); Estimated Glomerular Filt Rate > 60; Glucose 75 mg/dL (65-110); Potassium 4.4 mmol/L (3.4-5.0); Sodium 138 mmol/L (137-145)
[2025-04-15 18:53] LABS: Hematocrit 45.8 % (37.0-47.0); Hemoglobin 15.0 g/dL (12.0-15.0); Immature Granulocyte Percent A 0.2 % (0-0.5); Lymphocytes Absolute Auto 1.05 K/mm3 (0.9-3.2); Mean Corpuscular HGB Conc 32.8 g/dl (32-36); Mean Corpuscular Hemoglobin 29.9 pg (26-34); Mean Corpuscular Volume 91.4 fl (80-100); Nucleated Red Blood Cells Absolute Auto 0.000 K/mm3 (0.0-0.012); Nucleated Red Blood Cells Perc 0.0 % (0.0-0.2); Platelet Count Result 234 k/mm3 (150-375); Red Blood Count 5.01 M/mm3 (4.2-5.4); White Blood Count 6.0 K/mm3 (4.5-10.0)
== END 2025-04-15 09:42 | disposition home or self-care (01) ==
LOC: ANHGOSHLAB 09:42
PROVIDERS: PCP Family Medicine; Visit Provider Internal Medicine Hematology & Oncology
DX: C50.411 Malignant neoplasm of upper-outer quadrant of right female breast (principal); Z17.0 Estrogen receptor positive status [ER+]
CPT/HCPCS: 36415; 80048; 85025; 86300